=== PATIENT | male | born 1985 | race Caucasian/White ===

== ENCOUNTER 2019-06-12 15:01 | Emergency (ER) | payer SELFPAY ==
[2019-06-12 15:09] VITALS: BP 125/64; PULSE 100; TEMP 99.6; BMI 30.1
[2019-06-12] MEDS ORDERED: TETRACAINE 0.5% HCL 0.6ML DROPPER.BOTTLE OU ONE (15:40)
[2019-06-12] MEDS ORDERED: FLUORESCEIN NA 1 EA STRIP OU ONE (15:40)
[2019-06-12] MEDS ORDERED: FLUORESCEIN NA 1 EA STRIP ONE (15:42)
[2019-06-12] MEDS ORDERED: TETRACAINE 0.5% OPHTH SOLN 2 ML BOTTLE ONE (15:43)
[2019-06-12] MEDS ORDERED: AZITHROMYCIN 250 MG TABLET PO ONE (15:58)
[2019-06-12] MEDS ORDERED: ERYTHROMYCIN 0.5% OPHTHALMIC OINTMENT 3.5 GM TUBE OU ONE (15:59)
[2019-06-12] MEDS ORDERED: ERYTHROMYCIN 0.5% OPHTHALMIC OINTMENT 3.5 GM TUBE ONE (16:02)
--- NOTE | 2019-06-12 16:05 | PDOC ---
History of Present Illness - General Chief Complaint: Eye Problem Stated Complaint: RT EYE REDNESS Time Seen by Provider: 06/12/19 15:39 History Source: Patient Exam Limitations: No Limitations - History of Present Illness Initial Comments: 06/12/19 15:59 HISTORY OF PRESENT ILLNESS: 33-year-old male presents emergency department for evaluation of miguel a sensation in bilateral eyes with the right worse than the left. Patient does not remember any direct eye trauma or being out in the sun for extended periods of time without sunglasses. Patient also reports an itchy tingling sensation in his ureter every time he urinates which is now become painful. Reports being monogamous with 1 partner having unprotected oral and vaginal intercourse over 9 years. Patient reports most recently performed oral sex 1 week ago and may have been splashed in the face with some of her vaginal secretions. Patient denies any penile discharge. Patient denies any fevers, chills, chest pain, shortness of breath, abdominal pain, nausea or vomiting. No recent travel or sick contacts. PAST MEDICAL HISTORY: Denies past medical history SURGICAL HISTORY: Denies ALLERGIES: No known drug allergies REVIEW OF SYSTEMS General/Constitutional: Denies fever or chills. Denies weakness, weight change. HEENT: see HPI Cardiovascular: Denies chest pain or shortness of breath. Respiratory: Denies cough, wheezing, or hemoptysis. Gastrointestinal: Denies nausea, vomiting, diarrhea or constipation. Denies rectal bleeding. Genitourinary: see HPI Musculoskeletal: Denies joint or muscle swelling or pain. Denies neck or back pain. Skin and breasts: Denies rash or easy bruising. Neurologic: Denies headache, vertigo, loss of consciousness, or loss of sensation. Psychiatric: Denies depression or anxiety. Endocrine: Denies increased thirst. Denies abnormal weight change. Hematologic/Lymphatic: Denies anemia, easy bleeding, or history of blood clots. Allergic/Immunologic: Denies hives or skin allergy. Denies latex allergy. PHYSICAL EXAM General Appearance: Well-appearing, appropriately dressed. No apparent distress , no intoxication. HEENT: EOMI, PERRLA, normal ENT inspection, normal voice, TMs normal, pharynx normal. No conjunctival pallor. No photophobia, scleral icterus. Conjunctival erythema presents extending to the level of the limbus bilaterally. Thick mucoid discharge presents on the anterior surface of the right globe. Easily flushed away with normal saline. Underside of bilateral eyelids reveals no foreign body or lesion. Neck: Supple. Trachea midline. No tenderness, rigidity, carotid bruit, stridor , lymphadenopathy, or thyromegaly. Respiratory/Chest: Lungs CTAB. No shortness of breath, chest tenderness, respiratory distress, accessory muscle use. No crackles, rales, rhonchi, stridor , wheezing, dullness Cardiovascular: RRR. S1, S2. No JVD, murmur, bradycardia, tachycardia. Vascular Pulses: Dorsalis-Pedis (R): 2+, Dorsalis-Pedis (L): 2+ Gastrointestinal/Abdominal: Normal bowel sounds. Abdomen soft, non-distended. No tenderness or rebound tenderness. No organomegaly, pulsatile mass, guarding, hernia, hepatomegaly, splenomegaly. Genitals: Circumcised penis. No discharge or drainage from the meatus. Testicular exam is within normal limits without any masses or tenderness present. Spermatic cords present bilaterally. Lymphatic: No adenopathy, tenderness. Musculoskeletal/Extremities: Normal inspection. FROM of all extremities, normal capillary refill. Pelvis Stable. No CVA tenderness. No tenderness to extremities, pedal edema, swelling, erythema or deformity. Integumentary: Appropriate color, dry, warm. 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 Fully oriented, alert. Appropriate mood/affect. Motor strength 5/5. No appreciable EOM palsy, facial droop or sensory deficit. Past History - Past Medical History Allergies/Adverse Reactions: Allergies Allergy/AdvReac Type Severity Reaction Status Date / Time No Known Allergies Allergy Verified 06/12/19 15:09 Home Medications: Ambulatory Orders Erythromycin 0.5% Eye Ointment [Erythromycin 0.5% Eye Ointment -] 1 applic OU QID #1 tube 06/12/19 COPD: No - Suicide/Smoking/Psychosocial Hx Smoking History: Current every day smoker Number of Cigarettes Smoked Daily: 20 Information on smoking cessation initiated: No *Physical Exam - Vital Signs Last Vital Signs Temp Pulse Resp BP Pulse Ox 99.6 F 100 H 18 125/64 99 06/12/19 15:07 06/12/19 15:07 06/12/19 15:07 06/12/19 15:07 06/12/19 15:07 ED Treatment Course - Medications Given in the ED: ED Medications Discontinued Medications Generic Name Dose Route Start Last Admin Trade Name Corina PRN Reason Stop Dose Admin Fluorescein Sodium 1 ea 06/12/19 15:40 06/12/19 15:43 Fluorets - OU 06/12/19 15:41 1 ea ONCE ONE Administration Tetracaine HCl 1 drop 06/12/19 15:40 06/12/19 15:43 Tetravisc 0.5% Eye Drops - OU 06/12/19 15:41 1 drop ONCE ONE Administration Medical Decision Making - Medical Decision Making 06/12/19 16:05 A/P: 33-year-old male with conjunctivitis and potential STD exposure EYE EXAMINATION: Visual acuity: 20/20 in the left eye, 20/20 in the right eye, near, uncorrected The lid and lashes are normal. Extraocular movements are intact. The conjunctiva is erythematous with scleral injection extending to the limbus. +mucopurulent discharge The corneal surface is normal post tetracaine and fluorescein. There is no corneal abrasion or foreign body. There is no abnormal fluorescein uptake. The pupils are equal, round and reactive to light. The fundus shows normal vessels and normal discs. This patient is having urologic symptoms consistent with an STI, I will treat for gonorrhea and chlamydia with azithromycin 1 g and ceftriaxone 150 mg IM. If conjunctivitis is gonococcal in nature this should provide adequate coverage but I will add it to erythromycin for nongonococcal conjunctivitis. RPR, HIV, GC urine Discharge home 06/12/19 16:11 *DC/Admit/Observation/Transfer Diagnosis at time of Disposition: Possible exposure to STD Conjunctivitis Qualifiers: Conjunctivitis type: acute Acute conjunctivitis type: unspecified Laterality: bilateral Qualified Code(s): H10.33 - Unspecified acute conjunctivitis, bilateral - Discharge Dispostion Disposition: HOME Condition at time of disposition: Stable Decision to Admit order: No - Prescriptions Prescriptions: Erythromycin 0.5% Eye Ointment [Erythromycin 0.5% Eye Ointment -] 1 applic OU QID #1 tube - Referrals Referrals: Haile Hillman MD [Staff Physician] - - Patient Instructions Additional Instructions: You been treated today with azithromycin 1 g by mouth for treatment of presumed chlamydia You have been treated with Rocephin 250 mg injection for treatment of presumned gonorrhea The syphilis test, gonorrhea and chlamydia testing will not be completed for the next few days. You may call [phone] and leave message for return phone call with lab results. Be sure to be clear with your name, birthdate, and phone number Always use condoms with the partners Rest, avoid rubbing eyes Wash hands frequently as this is very contagious Wash hands, use eye drops as directed, wash hands after use Do not share eye ointment with other person to may become infected as this will infect them Erthromycin ointment to affected eye 4 times a day for 5 days Avoid contact with others until redness and discharge is gone from eyes. Followup with ophthalmology or private physician as needed Followup with TRAPEZE PERFORMER or PMD in one week for reevaluation and retesting. - Post Discharge Activity
[2019-06-12] MEDS ORDERED: AZITHROMYCIN 250 MG TABLET ONE (16:06)
== END 2019-06-12 16:19 | disposition home or self-care (01) ==
LOC: JERFT 15:01
PROC: 3E02329 Introduction of Other Anti-infective into Muscle, Percutaneous Approach (ICD-10-PCS; principal; 2019-06-12)
PROC: 4A07X0Z Measurement of Visual Acuity, External Approach (ICD-10-PCS; 2019-06-12)
DX: H10.33 Unspecified acute conjunctivitis, bilateral (principal); Z20.2 Contact with and (suspected) exposure to infections with a predominantly sexual mode of transmission
CPT/HCPCS: 36415; 86593; 87389; 87491; 87591; 99282-25

== ENCOUNTER 2019-06-16 20:56 | Emergency (ER) | payer OTHER ==
--- NOTE | 2019-06-16 20:59 | PDOC ---
Rapid Medical Evaluation Time Seen by Provider: 06/16/19 20:58 Medical Evaluation: Allergies Allergy/AdvReac Type Severity Reaction Status Date / Time No Known Allergies Allergy Verified 06/12/19 15:09 06/16/19 21:00 I have performed a brief in-person evaluation of this patient. The patient presents with a chief complaint of:2nd visit for b/l conjunctivitis. Seen in ER 4 days ago for same, was covered for possible STD source w/ ceftriaxone and azithro and sent home w/ erythromycin ointment. States sxs not improved. Also admits to taking 2 dose of amoxicillin given to him by his friend. STD tests since neg. Does not wear contact lens Pertinent physical exam findings:b/l conjunc erythema I have ordered the following:nothing The patient will proceed to the ED for further evaluation. 06/16/19 21:03 Discharge Disposition - Diagnosis Conjunctivitis Qualifiers: Conjunctivitis type: unspecified Laterality: bilateral Qualified Code(s): H10.9 - Unspecified conjunctivitis - Referrals - Patient Instructions - Post Discharge Activity
[2019-06-16 21:02] VITALS: BP 121/72; PULSE 95; TEMP 99.3; BMI 32.4
--- NOTE | 2019-06-16 21:27 | PDOC ---
History of Present Illness - General Chief Complaint: Eye Problem Stated Complaint: F/U EYES IRRITATION Time Seen by Provider: 06/16/19 20:58 - History of Present Illness Initial Comments: 06/16/19 21:21 33-year-old male presents for evaluation of bilateral eye irritation. He was treated for GC and chlamydia. His blood work was negative. He does have urinary symptoms, for which she self medicated with amoxicillin over the last 2 days. He states his urinary symptoms have been improving. Past History - Past Medical History Allergies/Adverse Reactions: Allergies Allergy/AdvReac Type Severity Reaction Status Date / Time No Known Allergies Allergy Verified 06/12/19 15:09 Home Medications: Ambulatory Orders Erythromycin 0.5% Eye Ointment [Erythromycin 0.5% Eye Ointment -] 1 applic OU QID #1 tube 06/12/19 Cephalexin [Keflex] 500 mg PO QID #20 capsule 06/16/19 Olopatadine HCl [Pataday] 1 drop OU DAILY #1 bottle 06/16/19 COPD: No - Suicide/Smoking/Psychosocial Hx Smoking History: Current every day smoker Number of Cigarettes Smoked Daily: 20 Information on smoking cessation initiated: No Review of Systems - Review of Systems Constitutional: No: Fever HEENTM: Yes: Tearing : Yes: Dysuria *Physical Exam - Vital Signs Last Vital Signs Temp Pulse Resp BP Pulse Ox 99.3 F 95 H 18 121/72 96 06/16/19 20:59 06/16/19 20:59 06/16/19 20:59 06/16/19 20:59 06/16/19 20:59 - Physical Exam Comments: 06/16/19 21:22 HEAD: NC/AT EYES: Conjuntiva erythemic with clear discharge MS: Full ROM in all joints without edema NEUROLOGIC: No gross sensory or motor deficits, NVID SKIN: Normal color and temperature no lesions or rashes General Appearance: Yes: Appropriately Dressed Medical Decision Making - Medical Decision Making 06/16/19 21:22 Treat for ALLERGIC conjunctivitis and have patient follow up with his PCP. He is having urinary symptoms. However he self medicated. I will treat him with Keflex for a presumptive urinary tract infection. I suspect a urine would be negative with 2-1/2 days worth of self-medicating antibiotics. I will treat him with Keflex *DC/Admit/Observation/Transfer Diagnosis at time of Disposition: Conjunctivitis Qualifiers: Conjunctivitis type: unspecified Laterality: bilateral Qualified Code(s): H10.9 - Unspecified conjunctivitis - Discharge Dispostion Disposition: HOME Condition at time of disposition: Stable - Prescriptions Prescriptions: Cephalexin [Keflex] 500 mg PO QID #20 capsule Tobramycin 0.3% Ophth Soln [Tobrex Ophthalmic Solution -] 1 drop OU Q4HWA #1 bottle - Referrals Referrals: Danny Villarreal MD [Staff Physician] - - Patient Instructions Additional Instructions: Please use the eyedrops as directed. Please take the antibiotics as directed. Discontinue the use of the antibiotics. You have been using. Return to the emergency room for worsening symptoms and follow-up with her primary care physician without fail within the next 1-2 days. - Post Discharge Activity
== END 2019-06-16 21:43 | disposition home or self-care (01) ==
LOC: JERFT 20:56
DX: H10.9 Unspecified conjunctivitis (principal); F17.210 Nicotine dependence, cigarettes, uncomplicated
CPT/HCPCS: 99281-25

== ENCOUNTER 2019-06-19 07:30 | Emergency (ER) | payer OTHER ==
[2019-06-19 07:46] VITALS: BP 129/60; PULSE 79; TEMP 98; BMI 32.4
--- NOTE | 2019-06-19 08:44 | PDOC ---
History of Present Illness - General Chief Complaint: Eye Problem Stated Complaint: RED EYES Time Seen by Provider: 06/19/19 08:03 History Source: Patient Exam Limitations: No Limitations Past History - Travel Traveled outside of the country in the last 30 days: No Close contact w/someone who was outside of country & ill: No - Past Medical History Allergies/Adverse Reactions: Allergies Allergy/AdvReac Type Severity Reaction Status Date / Time No Known Allergies Allergy Verified 06/19/19 07:45 Home Medications: Ambulatory Orders Erythromycin 0.5% Eye Ointment [Erythromycin 0.5% Eye Ointment -] 1 applic OU QID #1 tube 06/12/19 Cephalexin [Keflex] 500 mg PO QID #20 capsule 06/16/19 Olopatadine HCl [Pataday] 1 drop OU DAILY #1 bottle 06/16/19 Tobramycin 0.3% Ophth Soln [Tobrex Ophthalmic Solution -] 1 drop OU TID #100 drops 06/19/19 COPD: No - Suicide/Smoking/Psychosocial Hx Smoking History: Never smoked Number of Cigarettes Smoked Daily: 20 Review of Systems - Review of Systems Able to Perform ROS?: Yes Comments:: 06/19/19 08:40 CONSTITUTIONAL: Absent: fever, chills, diaphoresis, generalized weakness, malaise, loss of appetite HEENT: Present: eye redness Absent: rhinorrhea, nasal congestion, throat pain, throat swelling, difficulty swallowing, mouth swelling, ear pain, eye pain, visual Changes MUSCULOSKELETAL: Absent: myalgia, arthralgia, joint swelling SKIN: Absent: rash, itching, pallor NEUROLOGIC: Absent: headache, focal weakness or paresthesias, dizziness, unsteady gait, seizure, mental status changes, bladder or bowel incontinence PSYCHIATRIC: Absent: anxiety, depression, suicidal or homicidal ideation, hallucinations. Is the patient limited Uzbek proficient: No *Physical Exam - Vital Signs Last Vital Signs Temp Pulse Resp BP Pulse Ox 98 F 79 18 129/60 99 06/19/19 07:42 06/19/19 07:42 06/19/19 07:42 06/19/19 07:42 06/19/19 07:42 - Physical Exam Comments: 06/19/19 08:42 GENERAL: The patient is awake, alert, and fully oriented, in no acute distress. HEAD: Normal with no signs of trauma. EYES: Pupils equal, round and reactive to light, extraocular movements intact, sclera anicteric, conjunctiva are injected b/l. No visual changes. No discharge noted EXTREMITIES: Normal range of motion, no edema. NEUROLOGICAL: Normal speech, normal gait. PSYCH:[Normal mood, normal affect. SKIN: Warm, Dry, normal turgor, no rashes or lesions noted. Medical Decision Making - Medical Decision Making 06/19/19 08:54 The patient is a 33 y/o M with no PMH who presents to the ER for b/l eye redness for 6 days. The patient states he has been here multiple times for his eye problem and is using the drops that were prescribed with no relief of symptoms. States that there is a sand like feeling in both eyes and that he notes discharge from both eyes in the morning. He has not seen an cutter and edge trimmer. Denies visual changes, double vision, fever A/P: conjuncitivitis yellowish discharge noted as well as injected sclera b/l Will try different abx drops at this time; tobramycin Advised to take the antihistamine drops at night before bed that were prescribed last time Ophthalmology follow up given DC home I discussed the physical exam findings, ancillary test results and final diagnoses with the patient. I answered all of the patient's questions. The patient was satisfied with the care received and felt comfortable with the discharge plan and treatment plan. The Patient agrees to follow up with the primary care physician/specialist within 24-72 hours. Return precautions were given. *DC/Admit/Observation/Transfer Diagnosis at time of Disposition: Conjunctivitis Qualifiers: Conjunctivitis type: acute Acute conjunctivitis type: unspecified Laterality: bilateral Qualified Code(s): H10.33 - Unspecified acute conjunctivitis, bilateral - Discharge Dispostion Disposition: HOME Condition at time of disposition: Stable Decision to Admit order: No - Prescriptions Prescriptions: Tobramycin 0.3% Ophth Soln [Tobrex Ophthalmic Solution -] 1 drop OU TID #100 drops - Referrals Referrals: Douglas Kidd MD [Staff Physician] - Ruddy Pugh MD [Staff Physician] - - Patient Instructions Printed Discharge Instructions: DI for Conjunctivitis Additional Instructions: You have conjunctivitis. This is an eye infection. Please use the Tobramycin eye drops three times a day for one week to both eyes You may use the antihistamine eye drops at night before bed Please wash her hands frequently Do not wear contact lenses until your infection clears Follow up with ophthalmology if her symptoms do not improve within a week. Return to the ER for visual changes, blurry vision, or any new or worsening symptoms. - Post Discharge Activity
== END 2019-06-19 08:45 | disposition home or self-care (01) ==
LOC: JER 07:30
DX: H10.33 Unspecified acute conjunctivitis, bilateral (principal)
CPT/HCPCS: 99281-25

== ENCOUNTER 2019-06-25 01:04 | Emergency (ER) | payer OTHER ==
[2019-06-25 01:49] VITALS: BP 109/71; PULSE 18; TEMP 97.8; BMI 32.5
[2019-06-25] MEDS ORDERED: FLUORESCEIN NA 1 EA STRIP ONE (03:53)
--- NOTE | 2019-06-25 03:59 | PDOC ---
Attending Attestation - Resident Resident Name: Jennie Veliz - ED Attending Attestation I have performed the following: I have examined & evaluated the patient, The case was reviewed & discussed with the resident, I agree w/resident's findings & plan, Exceptions are as noted - HPI HPI: 06/25/19 08:24 33M here with conjunctivitis that was initially unilateral R then has spread to the L has been seen several times and has received several different tx courses w/o improvement until given moxiflox. - Physicial Exam PE: 06/25/19 08:25 Agree with exam as documented by resident - Medical Decision Making 06/25/19 08:25 No signs of physical injury to eye, will continue current tx that gives pt relief dc pt, will f/u with already arranged ophtho appointment
--- NOTE | 2019-06-25 04:09 | PDOC ---
History of Present Illness - General Chief Complaint: Eye Problem Stated Complaint: RX REFILL Time Seen by Provider: 06/25/19 02:35 - History of Present Illness Initial Comments: 06/25/19 04:09 The patient is a 33 year old male with no reported significant PMH who presents to the ED c/o bilateral eye redness (R>L). Patient states the redness started two weeks previous and he has been to our ED multiple times and started multiple antibiotics. Patient states he believes his eyes became infected either when he was lifting heavy items in a [place] apartment or when he was performing oral sex on his female partner and some vaginal discharge got into his eyes. States he then went to [facility] where he was started on Moxifloxican eye drops and he presents today because he wants additional eyes drops because he believes they are the only medicine that is working. Also states he is taking red colored pills which were prescribed to him during an evaluation in our ED. Patient denies fevers/chills, dysuria/hematuria, nausea/vomiting, diarrhea/ constipation. As per EMR, patient evaluated on 3 occasions the last 2 weeks and was started on erythromycin then Keflex then Tobramycin. S/p G/C treatment with negative test results. Past History - Past Medical History Allergies/Adverse Reactions: Allergies Allergy/AdvReac Type Severity Reaction Status Date / Time No Known Allergies Allergy Verified 06/25/19 02:02 Home Medications: Ambulatory Orders Erythromycin 0.5% Eye Ointment [Erythromycin 0.5% Eye Ointment -] 1 applic OU QID #1 tube 06/12/19 Cephalexin [Keflex] 500 mg PO QID #20 capsule 06/16/19 Olopatadine HCl [Pataday] 1 drop OU DAILY #1 bottle 06/16/19 Tobramycin 0.3% Ophth Soln [Tobrex Ophthalmic Solution -] 1 drop OU TID #100 drops 06/19/19 Moxifloxacin HCl [Moxifloxacin] 3 ml OP BID 06/25/19 Moxifloxacin HCl [Moxifloxacin] 3 ml OP BID 7 Days #1 bottle 06/25/19 COPD: No - Suicide/Smoking/Psychosocial Hx Smoking History: Current every day smoker Number of Cigarettes Smoked Daily: 20 Information on smoking cessation initiated: No Review of Systems - Review of Systems Constitutional: No: Chills, Fever HEENTM: Yes: Eye Pain Respiratory: No: Cough, Shortness of Breath Cardiac (ROS): No: Chest Pain, Lightheadedness, Palpitations ABD/GI: No: Constipated, Diarrhea, Nausea, Vomiting : No: Burning, Dysuria *Physical Exam - Vital Signs Last Vital Signs Temp Pulse Resp BP Pulse Ox 97.8 F 18 L 73 H 109/71 100 06/25/19 01:48 06/25/19 01:48 06/25/19 01:48 06/25/19 01:48 06/25/19 01:48 - Physical Exam General Appearance: Yes: Nourished, Appropriately Dressed HEENT: positive: Normal Voice, Hearing Grossly Normal, Other (B/L conjunctivitis (R > L); no corneal abrasion of R eye on flourescein exam) Neck: positive: Trachea midline, Supple Extremity: positive: Normal Capillary Refill, Normal Inspection Integumentary: positive: Normal Color, Dry, Warm 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 Flourescein staining negative for corneal abrasion Will continue Moxifloxacin and industrial relations counselor patient he must follow-up with previously scheduled opthamology appointment. *DC/Admit/Observation/Transfer Diagnosis at time of Disposition: Conjunctivitis - Discharge Dispostion Disposition: HOME Condition at time of disposition: Good Decision to Admit order: No - Prescriptions Prescriptions: Moxifloxacin HCl [Moxifloxacin] 3 ml OP BID 7 Days #1 bottle - Referrals Referrals: Kiley Perez [Primary Care Provider] - - Patient Instructions Printed Discharge Instructions: DI for Conjunctivitis Additional Instructions: Please complete a 7 day course of eye drops. Take one drop twice daily. You must follow up with an correctional medicine physician as previously scheduled. Call your insurance company for a list of referrals if you don't make your previously scheduled appointment. Return to the Emergency Department for any new/worsening/concerning symptoms. - Post Discharge Activity
== END 2019-06-25 04:23 | disposition home or self-care (01) ==
LOC: JER 01:04
DX: H10.33 Unspecified acute conjunctivitis, bilateral (principal)
CPT/HCPCS: 99281-25

== ENCOUNTER 2019-08-26 04:58 | Emergency (ER) | payer OTHER ==
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
[2019-08-26 05:56] VITALS: BP 115/58; PULSE 73; TEMP 98.5; BMI 34.4
[2019-08-26] MEDS ORDERED: LIDOCAINE 5% TOPICAL PATCH TP ONE (06:10)
[2019-08-26] MEDS ORDERED: LIDOCAINE 5% TOPICAL PATCH ONE (06:23)
[2019-08-26] MEDS ORDERED: IBUPROFEN 400 MG TABLET (FP) PO ONE ×3 (07:24→07:32)
--- NOTE | 2019-08-26 07:27 | PDOC ---
*Physical Exam - Vital Signs Last Vital Signs Temp Pulse Resp BP Pulse Ox 98.5 F 73 18 115/58 L 95 08/26/19 05:46 08/26/19 05:46 08/26/19 05:46 08/26/19 05:46 08/26/19 05:46 ED Treatment Course - Medications Given in the ED: ED Medications Discontinued Medications Generic Name Dose Route Start Last Admin Trade Name Corina PRN Reason Stop Dose Admin Lidocaine 1 patch 08/26/19 06:10 08/26/19 06:28 Lidoderm Patch - TP 08/26/19 06:11 1 patch ONCE ONE Administration Medical Decision Making - Medical Decision Making Pt was signed out to me by resident Dr. Delarosa, who explained the presentation , ED course, any pending results, and needed interventions. Pending results include L shoulder x-ray. Pt is currently stable and has been ambulating in ED. Providing 800 mg PO motrin for pain. 08/26/19 07:25 Pt was provided motrin. Pt did not wish to stay for x-rays and eloped from ER. 08/26/19 08:16 Discharge - Discharge Information Problems reviewed: Yes Clinical Impression/Diagnosis: Muscle strain Condition: Good Disposition: ELOPED - Follow up/Referral Referrals: Kiley Perez [Primary Care Provider] - - Patient Discharge Instructions Patient Printed Discharge Instructions: DI for Muscle Strain Additional Instructions: You were seen in the ED for complaints of neck pain and shoulder pain There does not appear to be an acute need for immediate hospitalization. You are advised to follow up with your Primary Care Physician within 1 week. You have Robaxin prescribed to you already and you should take it as prescribed. Return to the ED immediately if you experience worsening pain, numbness, tingling or weakness. - Post Discharge Activity
[2019-08-26] MEDS ORDERED: IBUPROFEN 600 MG TABLET (FP) PO ONE (07:33)
[2019-08-26] MEDS ORDERED: LIDOCAINE PATCH REMOVAL MC SCH (22:00)
== END 2019-08-26 08:41 | disposition left against medical advice (07) ==
LOC: JER 04:58
DX: S16.1XXD Strain of muscle, fascia and tendon at neck level, subsequent encounter (principal); M25.512 Pain in left shoulder; V43.92XD Unspecified car occupant injured in collision with other type car in traffic accident, subsequent encounter
CPT/HCPCS: 72125-TC; 99282-25

== ENCOUNTER 2021-04-23 23:42 | Emergency (ER) | payer OTHER ==
[2021-04-23 23:53] VITALS: BP 136/86; PULSE 82; TEMP 98.6; BMI 35.6
[2021-04-24] MEDS ORDERED: CLINDAMYCIN HCL 300 MG CAPSULE PO ONE (00:39)
[2021-04-24] MEDS ORDERED: IBUPROFEN 600 MG TABLET (FP) PO ONE ×2 (00:39→00:57)
[2021-04-24] MEDS ORDERED: CLINDAMYCIN HCL 150 MG CAPSULE (FP) ONE (00:57)
== END 2021-04-24 01:28 | disposition home or self-care (01) ==
LOC: JER 23:42
DX: L02.415 Cutaneous abscess of right lower limb (principal); L03.115 Cellulitis of right lower limb
CPT/HCPCS: 99283-25

== ENCOUNTER 2021-05-15 19:16 | Emergency (ER) | payer OTHER ==
[2021-05-15 19:38] VITALS: BP 121/69; PULSE 86; TEMP 98.2; BMI 33.0
[2021-05-15] MEDS ORDERED: IBUPROFEN 600 MG TABLET (FP) PO ONE ×2 (19:54→20:04)
== END 2021-05-15 20:40 | disposition home or self-care (01) ==
LOC: JERFT 19:16
DX: S83.91XA Sprain of unspecified site of right knee, initial encounter (principal); S93.401A Sprain of unspecified ligament of right ankle, initial encounter; V23.4XXA Motorcycle driver injured in collision with car, pick-up truck or van in traffic accident, initial encounter
CPT/HCPCS: 73552-TC-RT-FY; 73562-TC-RT-FY; 73590-TC-RT-FY; 73610-TC-RT-FY; 73630-TC-RT-FY; 99285-25